=== PATIENT | male | born 1940 | race African-American/Black ===

== ENCOUNTER 2019-03-12 13:28 | Inpatient (IN) ==
[2019-03-12] MEDS ORDERED: GLUCAGON 1 MG VIAL IM PRN (15:16)
[2019-03-12] MEDS ORDERED: ACETAMINOPHEN 325 MG TABLET PO PRN (15:16)
[2019-03-12] MEDS ORDERED: DEXTROSE 10% 250 ML BAG IV PRN (15:16)
[2019-03-12] MEDS ORDERED: ALBUTEROL 2.5 MG/3 ML NEB RESP TX PRN (15:21)
[2019-03-12 15:30] LABS: Basophils % 0.1 % (0.0-0.8); Hematocrit 46.4 VOL% (42.0-52.0); Hemoglobin 15.1 GM/DL (14.0-18.0); Immature Granulocytes % 1.8 %; Immature Granulocytes Absolute 0.45 #; Lymphocytes # 0.8 10*3/uL (1.4-4.0); Lymphocytes % 3.4 % (21.2-54.2); Mean Corpuscular HGB Conc 32.5 GM/DL (32-36); Mean Corpuscular Volume 88.2 FL (87-102); Mean Platelet Volume 11.8 FL (9.6-12.0); Monocytes % 8.4 % (1.7-12.7); Neutrophils % 86.3 % (38.7-73.9); Platelet Count 277 T/CUMM (130-400); Red Blood Count 5.26 MC/CUMM (3.8-5.5); Red Cell Distribution Width 17.9 % (9.3-17.3); White Blood Count 24.4 T/CUMM (4-12)
[2019-03-12 15:49] LABS: Band Neutrophils 1 % (0-10); Lymphocytes 4 % (20-55); Segmented Neutrophils 87 % (50-85); Total Cells Counted 100
[2019-03-12 15:50] LABS: Platelet Estimate Adequate
[2019-03-12] MEDS ORDERED: SODIUM CHLORIDE 0.9% 100 ML IV ONE (16:28)
[2019-03-12 16:35] LABS: PT Patient Result 60.3 SECS (9.6-12.2); Partial Thromboplastin Time 79.7 SECS (20.8-36.0)
[2019-03-12 16:36] LABS: INR 5.6
[2019-03-12 17:03] LABS: Albumin 2.2 G/DL (3.4-5.0); Bilirubin,Total 1.8 MG/DL (0.2-1.0); Calcium 9.3 MG/DL (8.5-10.1); Osmolality,Calculated 294.7 MOS/KG (273-304); Risk Ratio 4.15; Thyroid Stimulating Hormone 1.48 uIU/ml (0.358-3.74); Total Protein 7.7 G/DL (6.4-8.3)
[2019-03-12] MEDS: cefTRIAXone 1,000 MG in SYRINGE 1 EACH IV SCH (17:04)
[2019-03-12] MEDS: INSULIN LISPRO 100 UNIT/ML SUBCUT SCH ×2 (17:04→20:58)
[2019-03-12] MEDS ORDERED: NITROGLYCERIN SL 0.4 MG TABLET SL PRN (17:11)
[2019-03-12] MEDS ORDERED: INFLUENZA VIRUS VACCINE 0.5 ML SYRINGE IM ONE (17:16)
[2019-03-12] MEDS: AZITHROMYCIN INJ 500 MG in SODIUM CHLORIDE 0.9% 250 ML IV SCH (17:30)
[2019-03-12] MEDS: ALBUTEROL/IPRATROPIUM 3 ML NEB RESP TX SCH (19:18)
[2019-03-12] MEDS: FERROUS GLUCONATE 240 MG TABLET PO SCH (20:57)
[2019-03-12] MEDS: FUROSEMIDE 20 MG TABLET PO SCH (20:57)
[2019-03-12] MEDS: AMITRIPTYLINE 50 MG TABLET PO SCH (20:57)
[2019-03-12] MEDS: BUDESONIDE/FORMOTEROL 80-4.5 INHALER 6.9 GM INH SCH (21:34)
[2019-03-13] MEDS: ALBUTEROL/IPRATROPIUM 3 ML NEB RESP TX SCH ×4 (00:48→19:20)
[2019-03-13 06:10] LABS: Basophils # 0.1 10*3/uL (0.0-0.2); Basophils % 0.2 % (0.0-0.8); Hematocrit 34.1 VOL% (42.0-52.0); Immature Granulocytes % 1.1 %; Immature Granulocytes Absolute 0.32 #; Lymphocytes # 0.6 10*3/uL (1.4-4.0); Mean Corpuscular HGB Conc 32.3 GM/DL (32-36); Mean Corpuscular Volume 88.3 FL (87-102); Mean Platelet Volume 11.8 FL (9.6-12.0); Monocytes % 9.1 % (1.7-12.7); Neutrophils % 87.6 % (38.7-73.9); Platelet Count 239 T/CUMM (130-400); Red Blood Count 3.86 MC/CUMM (3.8-5.5); Red Cell Distribution Width 17.2 % (9.3-17.3); White Blood Count 27.9 T/CUMM (4-12)
[2019-03-13 06:19] LABS: Calcium 9.5 MG/DL (8.5-10.1)
[2019-03-13 06:31] LABS: Hypochromasia 1+; Lymphocytes 4 % (20-55); Platelet Estimate Adequate; Segmented Neutrophils 91 % (50-85); Total Cells Counted 100
[2019-03-13] MEDS: INSULIN LISPRO 100 UNIT/ML SUBCUT SCH ×4 (08:37→21:25)
[2019-03-13] MEDS: ISOSORBIDE MONONITRATE 60 MG TABLET PO SCH (08:39)
[2019-03-13] MEDS: CLOPIDOGREL 75 MG TABLET PO SCH (08:39)
[2019-03-13] MEDS: FERROUS GLUCONATE 240 MG TABLET PO SCH ×2 (08:39→21:25)
[2019-03-13] MEDS: FUROSEMIDE 20 MG TABLET PO SCH ×2 (08:39→21:24)
[2019-03-13] MEDS: ATENOLOL 25 MG TABLET PO SCH (08:39)
[2019-03-13] MEDS: PANTOPRAZOLE 40 MG TABLET PO SCH (08:40)
[2019-03-13 08:43] LABS: Bilirubin,Direct 0.94 MG/DL (0.0-0.20); Bilirubin,Indirect 0.6 MG/DL (0.0-1.0); Bilirubin,Total 1.5 MG/DL (0.2-1.0); Total Protein 7.6 G/DL (6.4-8.3)
[2019-03-13] MEDS: BUDESONIDE/FORMOTEROL 80-4.5 INHALER 6.9 GM INH SCH ×2 (08:46→21:25)
[2019-03-13] MEDS ORDERED: hydroCHLOROthiazide 25 MG TABLET PO SCH (09:00)
[2019-03-13] MEDS: SODIUM CHLORIDE 0.45% 1,000 ML IV SCH (09:59)
[2019-03-13 10:10] LABS: PT Patient Result 73.6 SECS (9.6-12.2)
[2019-03-13 10:12] LABS: INR 6.9; Partial Thromboplastin Time 84.3 SECS (20.8-36.0)
[2019-03-13] MEDS ORDERED: PHYTONADIONE 5 MG/5 ML ORAL.SYR PO ONE (15:05)
[2019-03-13] MEDS: cefTRIAXone 1,000 MG in SYRINGE 1 EACH IV SCH (16:30)
[2019-03-13] MEDS: AZITHROMYCIN INJ 500 MG in SODIUM CHLORIDE 0.9% 250 ML IV SCH (16:36)
[2019-03-13] MEDS: PIPERACILLIN/TAZOBACTAM 3,375 MG in SODIUM CHLORIDE 0.9% 100 ML IV SCH (21:19)
[2019-03-13] MEDS: AMITRIPTYLINE 50 MG TABLET PO SCH (21:25)
[2019-03-14] MEDS: ALBUTEROL/IPRATROPIUM 3 ML NEB RESP TX SCH ×4 (01:01→20:52)
[2019-03-14] MEDS: PIPERACILLIN/TAZOBACTAM 3,375 MG in SODIUM CHLORIDE 0.9% 100 ML IV SCH ×2 (04:56→17:05)
[2019-03-14 06:01] LABS: Basophils # 0.1 10*3/uL (0.0-0.2); Basophils % 0.2 % (0.0-0.8); Hematocrit 34.1 VOL% (42.0-52.0); Hemoglobin 11.1 GM/DL (14.0-18.0); Immature Granulocytes % 3.8 %; Immature Granulocytes Absolute 1.23 #; Lymphocytes # 0.8 10*3/uL (1.4-4.0); Lymphocytes % 2.4 % (21.2-54.2); Mean Corpuscular HGB Conc 32.6 GM/DL (32-36); Mean Corpuscular Volume 88.1 FL (87-102); Mean Platelet Volume 11.2 FL (9.6-12.0); Monocytes % 5.8 % (1.7-12.7); Neutrophils % 87.8 % (38.7-73.9); Platelet Count 247 T/CUMM (130-400); Red Blood Count 3.87 MC/CUMM (3.8-5.5); Red Cell Distribution Width 16.9 % (9.3-17.3); White Blood Count 32.7 T/CUMM (4-12)
[2019-03-14 06:20] LABS: INR 4.3
[2019-03-14 06:21] LABS: Band Neutrophils 1 % (0-10); Lymphocytes 6 % (20-55); Segmented Neutrophils 84 % (50-85); Total Cells Counted 100
[2019-03-14 06:22] LABS: Anisocytosis 1+; Macrocytosis Slight; Platelet Estimate Normal
[2019-03-14 06:25] LABS: PT Patient Result 45.7 SECS (9.6-12.2)
[2019-03-14 06:35] LABS: Calcium 9.7 MG/DL (8.5-10.1); Osmolality,Calculated 295.5 MOS/KG (273-304)
[2019-03-14] MEDS: SODIUM CHLORIDE 0.45% 1,000 ML IV SCH (07:19)
[2019-03-14] MEDS: ISOSORBIDE MONONITRATE 60 MG TABLET PO SCH (08:34)
[2019-03-14] MEDS: PANTOPRAZOLE 40 MG TABLET PO SCH (08:35)
[2019-03-14] MEDS: CLOPIDOGREL 75 MG TABLET PO SCH (08:35)
[2019-03-14] MEDS: ATENOLOL 25 MG TABLET PO SCH (08:35)
[2019-03-14] MEDS ORDERED: AZITHROMYCIN 250 MG TABLET PO SCH (09:00)
[2019-03-14] MEDS: INSULIN LISPRO 100 UNIT/ML SUBCUT SCH ×4 (09:27→21:05)
[2019-03-14] MEDS ORDERED: CEFTAROLINE 200 MG in SODIUM CHLORIDE 0.9% 100 ML IV SCH (10:00)
[2019-03-14] MEDS: FERROUS GLUCONATE 240 MG TABLET PO SCH (10:45)
[2019-03-14 12:22] LABS: Creatinine,Urine Random 256 MG/DL; Total Protein,Urine Random 210 MG/DL; Urea Nitrogen, Urine Random 330 MG/DL
[2019-03-14 13:15] LABS: Apearance,Urine CLOUDY (Clear); Bilirubin,Urine Negative (Negative); Blood, Urine Moderate mg/dL (Negative); Glucose,Urine (UA) 50 mg/dL (Negative); Ketones,Urine Negative (Negative); Nitrite,Urine Negative (Negative); Protein,Urine 30 MG/DL; RBC,Urine 14 /HPF (0-4); Urine Color Amber (Yellow); Urine Specific Gravity 1.019 (1.001-1.035); Urine Urobilinogen < 2.0 EU/DL (0.2-1.0); WBC,Urine 22 /HPF (0-6)
[2019-03-14] MEDS: BUDESONIDE/FORMOTEROL 80-4.5 INHALER 6.9 GM INH SCH ×2 (15:22→21:05)
[2019-03-14] MEDS ORDERED: PHYTONADIONE 5 MG/5 ML ORAL.SYR PO ONE (15:25)
[2019-03-14 16:19] LABS: Amorphous Crystals,Urine Occasional /HPF (Few); Apearance,Urine CLOUDY (Clear); Bilirubin,Urine Negative (Negative); Blood, Urine Moderate mg/dL (Negative); Glucose,Urine (UA) 50 mg/dL (Negative); Ketones,Urine Negative (Negative); Nitrite,Urine Negative (Negative); Protein,Urine 30 MG/DL; Urine Color Amber (Yellow); Urine Urobilinogen < 2.0 EU/DL (0.2-1.0); WBC,Urine 2 /HPF (0-6)
[2019-03-14] MEDS: metroNIDAZOLE INJ 500 MG in PREMIX 1 EACH IV SCH ×2 (17:42→21:06)
[2019-03-14] MEDS: HEPARIN DRIP 25,000 UNITS/500 ML PREMIX IV SCH (18:20)
[2019-03-14] MEDS: SODIUM BICARB INJ 100 MEQ in STERILE WATER INJ 1,000 ML IV SCH (18:32)
[2019-03-14] MEDS ORDERED: SODIUM CHLORIDE 0.9% 500 ML IV ONE (18:41)
[2019-03-14] MEDS ORDERED: NOREPINEPHRINE 8 MG in SODIUM CHLORIDE 0.9% 242 ML IV PRN (19:31)
[2019-03-14] MEDS: ALBUMIN 25% 25 GM in PREMIX 1 EACH IV SCH ×2 (19:51→23:12)
[2019-03-14] MEDS: AMITRIPTYLINE 50 MG TABLET PO SCH (21:05)
[2019-03-15] MEDS: ALBUTEROL/IPRATROPIUM 3 ML NEB RESP TX SCH ×4 (00:47→20:08)
[2019-03-15] MEDS: SODIUM BICARB INJ 100 MEQ in STERILE WATER INJ 1,000 ML IV SCH ×2 (02:14→17:09)
[2019-03-15 02:18] LABS: Basophils % 0.2 % (0.0-0.8); Hematocrit 29.2 VOL% (42.0-52.0); Hemoglobin 9.6 GM/DL (14.0-18.0); Immature Granulocytes % 2.8 %; Immature Granulocytes Absolute 0.72 #; Lymphocytes # 0.5 10*3/uL (1.4-4.0); Lymphocytes % 1.8 % (21.2-54.2); Mean Corpuscular HGB Conc 32.9 GM/DL (32-36); Mean Corpuscular Volume 87.2 FL (87-102); Monocytes % 4.8 % (1.7-12.7); Neutrophils % 90.4 % (38.7-73.9); Platelet Count 253 T/CUMM (130-400); Red Blood Count 3.35 MC/CUMM (3.8-5.5); Red Cell Distribution Width 16.7 % (9.3-17.3); White Blood Count 25.5 T/CUMM (4-12)
[2019-03-15 02:39] LABS: Calcium 8.7 MG/DL (8.5-10.1); Osmolality,Calculated 299.5 MOS/KG (273-304)
[2019-03-15 02:44] LABS: Albumin 2.3 G/DL (3.4-5.0); Bilirubin,Direct 1.84 MG/DL (0.0-0.20); Bilirubin,Indirect 0.5 MG/DL (0.0-1.0); Bilirubin,Total 2.3 MG/DL (0.2-1.0)
[2019-03-15 03:02] LABS: Lymphocytes 2 % (20-55); Segmented Neutrophils 92 % (50-85); Total Cells Counted 100
[2019-03-15 03:03] LABS: Ovalocytes Few
[2019-03-15 03:04] LABS: Anisocytosis 1+; Platelet Estimate Normal; Target Cells Few
[2019-03-15] MEDS: SODIUM CHLORIDE 0.45% 1,000 ML IV SCH (03:24)
[2019-03-15] MEDS: metroNIDAZOLE INJ 500 MG in PREMIX 1 EACH IV SCH ×4 (03:26→21:11)
[2019-03-15 03:38] LABS: INR 3.2
[2019-03-15 03:40] LABS: PT Patient Result 34.6 SECS (9.6-12.2)
[2019-03-15] MEDS: ALBUMIN 25% 25 GM in PREMIX 1 EACH IV SCH ×3 (06:08→22:24)
[2019-03-15] MEDS: PIPERACILLIN/TAZOBACTAM 3,375 MG in SODIUM CHLORIDE 0.9% 100 ML IV SCH ×2 (06:09→19:01)
[2019-03-15] MEDS ORDERED: PHYTONADIONE INJ 2.5 MG in SODIUM CHLORIDE 0.9% 25 ML IV ONE (07:30)
[2019-03-15 08:17] LABS: INR 2.5
[2019-03-15 08:19] LABS: PT Patient Result 27.2 SECS (9.6-12.2)
[2019-03-15] MEDS ORDERED: SODIUM CHLORIDE 0.9% 1,000 ML IV ONE (08:54)
[2019-03-15] MEDS ORDERED: SODIUM CHLORIDE 0.45% 1,000 ML IV ONE (09:32)
[2019-03-15] MEDS: INSULIN LISPRO 100 UNIT/ML SUBCUT SCH ×4 (09:35→21:11)
[2019-03-15] MEDS: PANTOPRAZOLE 40 MG TABLET PO SCH (09:35)
[2019-03-15] MEDS ORDERED: PROTHROMBIN COMPLEX CONC 1,500 UNIT in IV BAG 1 EACH IV ONE (10:00)
[2019-03-15 12:09] LABS: INR 2.8
[2019-03-15 12:13] LABS: PT Patient Result 30.1 SECS (9.6-12.2); Partial Thromboplastin Time 82.1 SECS (20.8-36.0)
[2019-03-15] MEDS ORDERED: PROTHROMBIN COMPLEX IV ONE (12:31)
[2019-03-15 14:19] LABS: INR 1.2; PT Patient Result 13.3 SECS (9.6-12.2)
[2019-03-15] MEDS: HEPARIN DRIP 25,000 UNITS/500 ML PREMIX IV SCH (17:01)
[2019-03-15] MEDS: BUDESONIDE/FORMOTEROL 80-4.5 INHALER 6.9 GM INH SCH ×2 (19:00→21:11)
[2019-03-15] MEDS: AMITRIPTYLINE 50 MG TABLET PO SCH (21:11)
[2019-03-16] MEDS: ALBUTEROL/IPRATROPIUM 3 ML NEB RESP TX SCH ×4 (01:15→19:38)
[2019-03-16] MEDS: metroNIDAZOLE INJ 500 MG in PREMIX 1 EACH IV SCH ×4 (03:17→22:40)
[2019-03-16 04:13] LABS: Basophils % 0.2 % (0.0-0.8); Eosinophils % 0.1 % (0.00-10.9); Hematocrit 26.3 VOL% (42.0-52.0); Hemoglobin 8.7 GM/DL (14.0-18.0); Immature Granulocytes % 1.7 %; Immature Granulocytes Absolute 0.44 #; Lymphocytes # 0.4 10*3/uL (1.4-4.0); Lymphocytes % 1.4 % (21.2-54.2); Mean Corpuscular HGB Conc 33.1 GM/DL (32-36); Mean Corpuscular Volume 86.2 FL (87-102); Mean Platelet Volume 11.8 FL (9.6-12.0); Monocytes % 6.6 % (1.7-12.7); Platelet Count 248 T/CUMM (130-400); Red Blood Count 3.05 MC/CUMM (3.8-5.5); Red Cell Distribution Width 16.6 % (9.3-17.3); White Blood Count 25.5 T/CUMM (4-12)
[2019-03-16 04:26] LABS: Calcium 8.3 MG/DL (8.5-10.1); Osmolality,Calculated 299.4 MOS/KG (273-304)
[2019-03-16 04:37] LABS: INR 1.3; PT Patient Result 13.9 SECS (9.6-12.2)
[2019-03-16 04:52] LABS: Partial Thromboplastin Time 42.2 SECS (20.8-36.0)
[2019-03-16 05:26] LABS: Lymphocytes 3 % (20-55); Platelet Estimate Normal; Segmented Neutrophils 93 % (50-85); Total Cells Counted 100
[2019-03-16] MEDS: PIPERACILLIN/TAZOBACTAM 3,375 MG in SODIUM CHLORIDE 0.9% 100 ML IV SCH ×2 (05:49→20:00)
[2019-03-16] MEDS: SODIUM CHLORIDE 0.45% 1,000 ML IV SCH ×2 (05:50→19:30)
[2019-03-16] MEDS: ALBUMIN 25% 25 GM in PREMIX 1 EACH IV SCH ×2 (06:51→20:00)
[2019-03-16] MEDS ORDERED: SODIUM CHLORIDE 0.9% 1,000 ML IV PRN (08:15)
[2019-03-16] MEDS: INSULIN LISPRO 100 UNIT/ML SUBCUT SCH ×4 (09:03→22:33)
[2019-03-16] MEDS: BUDESONIDE/FORMOTEROL 80-4.5 INHALER 6.9 GM INH SCH ×2 (09:46→22:35)
[2019-03-16] MEDS: PANTOPRAZOLE 40 MG TABLET PO SCH (09:46)
[2019-03-16] MEDS: HEPARIN DRIP 25,000 UNITS/500 ML PREMIX IV SCH (09:47)
[2019-03-16] MEDS ORDERED: MAGNESIUM SULF RIDER 2 GM in PREMIX 1 EACH IV PRN (13:06)
[2019-03-16] MEDS ORDERED: MAGNESIUM SULF RIDER 4 GM in PREMIX 1 EACH IV PRN (13:06)
[2019-03-16 13:23] LABS: INR 1.4; PT Patient Result 14.8 SECS (9.6-12.2)
[2019-03-16 13:24] LABS: Partial Thromboplastin Time 78.3 SECS (20.8-36.0)
[2019-03-16 20:39] LABS: Hematocrit 32.4 VOL% (42.0-52.0)
[2019-03-16 20:42] LABS: Hemoglobin 10.9 GM/DL (14.0-18.0)
[2019-03-16] MEDS: AMITRIPTYLINE 50 MG TABLET PO SCH (22:35)
[2019-03-17] MEDS: ALBUTEROL/IPRATROPIUM 3 ML NEB RESP TX SCH ×4 (00:44→19:26)
[2019-03-17 02:46] LABS: Basophils % 0.2 % (0.0-0.8); Eosinophils # 0.1 10*3/uL (0.0-0.87); Eosinophils % 0.3 % (0.00-10.9); Hematocrit 28.9 VOL% (42.0-52.0); Hemoglobin 9.8 GM/DL (14.0-18.0); Immature Granulocytes % 3.5 %; Immature Granulocytes Absolute 0.72 #; Lymphocytes # 0.5 10*3/uL (1.4-4.0); Lymphocytes % 2.3 % (21.2-54.2); Mean Corpuscular HGB Conc 33.9 GM/DL (32-36); Mean Corpuscular Volume 83.5 FL (87-102); Mean Platelet Volume 10.2 FL (9.6-12.0); Monocytes % 6.9 % (1.7-12.7); Neutrophils % 86.8 % (38.7-73.9); Platelet Count 209 T/CUMM (130-400); Red Blood Count 3.46 MC/CUMM (3.8-5.5); Red Cell Distribution Width 16.1 % (9.3-17.3); White Blood Count 20.8 T/CUMM (4-12)
[2019-03-17 02:56] LABS: INR 1.4; PT Patient Result 14.7 SECS (9.6-12.2)
[2019-03-17 03:01] LABS: Partial Thromboplastin Time 75.2 SECS (20.8-36.0)
[2019-03-17 03:08] LABS: Anisocytosis 1+; Hypochromasia 1+; Lymphocytes 3 % (20-55); Microcytosis 1+; Platelet Estimate Adequate; Segmented Neutrophils 92 % (50-85); Total Cells Counted 100
[2019-03-17 03:11] LABS: Calcium 7.9 MG/DL (8.5-10.1); Osmolality,Calculated 302.5 MOS/KG (273-304)
[2019-03-17] MEDS: ALBUMIN 25% 25 GM in PREMIX 1 EACH IV SCH ×3 (05:00→23:00)
[2019-03-17] MEDS: metroNIDAZOLE INJ 500 MG in PREMIX 1 EACH IV SCH ×4 (06:00→22:11)
[2019-03-17] MEDS: INSULIN LISPRO 100 UNIT/ML SUBCUT SCH ×4 (09:23→21:16)
[2019-03-17] MEDS: PANTOPRAZOLE 40 MG TABLET PO SCH (10:17)
[2019-03-17] MEDS: PIPERACILLIN/TAZOBACTAM 3,375 MG in SODIUM CHLORIDE 0.9% 100 ML IV SCH ×2 (10:17→21:14)
[2019-03-17] MEDS: BUDESONIDE/FORMOTEROL 80-4.5 INHALER 6.9 GM INH SCH ×2 (10:18→21:17)
[2019-03-17] MEDS ORDERED: ALBUMIN 25% 25 GM in PREMIX 1 EACH IV SCH (14:00)
[2019-03-17 15:58] LABS: Hematocrit 31.5 VOL% (42.0-52.0); Hemoglobin 10.5 GM/DL (14.0-18.0)
[2019-03-17] MEDS: SODIUM CHLORIDE 0.45% 1,000 ML IV SCH (16:09)
[2019-03-17] MEDS: AMITRIPTYLINE 50 MG TABLET PO SCH (21:14)
[2019-03-17] MEDS: HEPARIN DRIP 25,000 UNITS/500 ML PREMIX IV SCH (21:31)
[2019-03-18] MEDS: ALBUTEROL/IPRATROPIUM 3 ML NEB RESP TX SCH ×4 (00:47→21:45)
[2019-03-18 05:15] LABS: INR 1.3; PT Patient Result 13.9 SECS (9.6-12.2)
[2019-03-18 05:39] LABS: Calcium 7.7 MG/DL (8.5-10.1); Osmolality,Calculated 306.7 MOS/KG (273-304)
[2019-03-18 05:51] LABS: Albumin 3.2 G/DL (3.4-5.0); Bilirubin,Direct 0.95 MG/DL (0.0-0.20); Bilirubin,Indirect 0.8 MG/DL (0.0-1.0); Bilirubin,Total 1.7 MG/DL (0.2-1.0); Total Protein 5.8 G/DL (6.4-8.3)
[2019-03-18] MEDS: metroNIDAZOLE INJ 500 MG in PREMIX 1 EACH IV SCH ×4 (05:51→21:34)
[2019-03-18 07:07] LABS: Basophils # 0.1 10*3/uL (0.0-0.2); Basophils % 0.3 % (0.0-0.8); Eosinophils % 0.2 % (0.00-10.9); Hematocrit 28.5 VOL% (42.0-52.0); Hemoglobin 9.6 GM/DL (14.0-18.0); Immature Granulocytes % 5.2 %; Immature Granulocytes Absolute 0.97 #; Lymphocytes # 0.5 10*3/uL (1.4-4.0); Lymphocytes % 2.6 % (21.2-54.2); Mean Corpuscular HGB Conc 33.7 GM/DL (32-36); Mean Corpuscular Volume 83.6 FL (87-102); Mean Platelet Volume 10.6 FL (9.6-12.0); Monocytes % 8.6 % (1.7-12.7); Neutrophils % 83.1 % (38.7-73.9); Platelet Count 219 T/CUMM (130-400); Red Blood Count 3.41 MC/CUMM (3.8-5.5); Red Cell Distribution Width 16.5 % (9.3-17.3); White Blood Count 18.8 T/CUMM (4-12)
[2019-03-18] MEDS: INSULIN LISPRO 100 UNIT/ML SUBCUT SCH ×4 (07:24→21:26)
[2019-03-18 07:29] LABS: Band Neutrophils 3 % (0-10); Lymphocytes 3 % (20-55); Nucleated Red Blood Cells 1 (0-5); Platelet Estimate Normal; Segmented Neutrophils 87 % (50-85); Total Cells Counted 100
[2019-03-18 07:30] LABS: Anisocytosis 3+; Polychromasia Slight
[2019-03-18 07:31] LABS: Giant Platelets Few; Hypochromasia Slight; Poikilocytosis Slight
[2019-03-18] MEDS: PIPERACILLIN/TAZOBACTAM 3,375 MG in SODIUM CHLORIDE 0.9% 100 ML IV SCH ×2 (07:36→21:25)
[2019-03-18] MEDS: BUDESONIDE/FORMOTEROL 80-4.5 INHALER 6.9 GM INH SCH ×2 (09:17→23:48)
[2019-03-18] MEDS: PANTOPRAZOLE 40 MG TABLET PO SCH (09:17)
[2019-03-18] MEDS: SODIUM CHLORIDE 0.45% 1,000 ML IV SCH (10:31)
[2019-03-18] MEDS: ATENOLOL 25 MG TABLET PO SCH (11:06)
[2019-03-18] MEDS: SODIUM BICARB INJ 100 MEQ in STERILE WATER INJ 1,000 ML IV SCH (11:06)
[2019-03-18] MEDS: HEPARIN DRIP 25,000 UNITS/500 ML PREMIX IV SCH (20:20)
[2019-03-18] MEDS: AMITRIPTYLINE 50 MG TABLET PO SCH (21:25)
[2019-03-19] MEDS: ALBUTEROL/IPRATROPIUM 3 ML NEB RESP TX SCH ×4 (00:48→20:42)
[2019-03-19] MEDS: SODIUM BICARB INJ 100 MEQ in STERILE WATER INJ 1,000 ML IV SCH ×2 (01:51→23:15)
[2019-03-19 04:37] LABS: Basophils # 0.1 10*3/uL (0.0-0.2); Basophils % 0.4 % (0.0-0.8); Eosinophils % 0.2 % (0.00-10.9); Hematocrit 28.4 VOL% (42.0-52.0); Hemoglobin 9.7 GM/DL (14.0-18.0); Immature Granulocytes % 7.6 %; Immature Granulocytes Absolute 1.37 #; Lymphocytes # 0.6 10*3/uL (1.4-4.0); Lymphocytes % 3.4 % (21.2-54.2); Mean Corpuscular HGB Conc 34.2 GM/DL (32-36); Mean Corpuscular Volume 82.1 FL (87-102); NRBC # 0.02 10*3/uL; Neutrophils % 78.4 % (38.7-73.9); Platelet Count 225 T/CUMM (130-400); Red Blood Count 3.46 MC/CUMM (3.8-5.5); Red Cell Distribution Width 16.3 % (9.3-17.3)
[2019-03-19 04:48] LABS: INR 1.4; PT Patient Result 14.7 SECS (9.6-12.2)
[2019-03-19 05:03] LABS: Band Neutrophils 1 % (0-10); Calcium 8.1 MG/DL (8.5-10.1); Eosinophils 1 % (0-10); Lymphocytes 4 % (20-55); Osmolality,Calculated 313.5 MOS/KG (273-304); Platelet Estimate Adequate; Segmented Neutrophils 87 % (50-85); Total Cells Counted 100
[2019-03-19 05:04] LABS: Hypochromasia Slight; Target Cells Few
[2019-03-19] MEDS: metroNIDAZOLE INJ 500 MG in PREMIX 1 EACH IV SCH ×2 (06:19→10:23)
[2019-03-19] MEDS: ATENOLOL 25 MG TABLET PO SCH (10:15)
[2019-03-19] MEDS: PANTOPRAZOLE 40 MG TABLET PO SCH (10:15)
[2019-03-19] MEDS: PIPERACILLIN/TAZOBACTAM 3,375 MG in SODIUM CHLORIDE 0.9% 100 ML IV SCH (10:16)
[2019-03-19] MEDS: INSULIN LISPRO 100 UNIT/ML SUBCUT SCH ×4 (10:25→20:50)
[2019-03-19] MEDS: BUDESONIDE/FORMOTEROL 80-4.5 INHALER 6.9 GM INH SCH ×2 (10:51→20:51)
[2019-03-19] MEDS: CIPROFLOXACIN 500 MG TABLET PO SCH (12:30)
[2019-03-19] MEDS: HEPARIN DRIP 25,000 UNITS/500 ML PREMIX IV SCH (16:10)
[2019-03-19] MEDS: AMITRIPTYLINE 50 MG TABLET PO SCH (20:50)
[2019-03-20] MEDS: ALBUTEROL/IPRATROPIUM 3 ML NEB RESP TX SCH ×4 (00:37→20:30)
[2019-03-20 03:56] LABS: Basophils # 0.1 10*3/uL (0.0-0.2); Basophils % 0.4 % (0.0-0.8); Eosinophils % 0.2 % (0.00-10.9); Hematocrit 28.8 VOL% (42.0-52.0); Hemoglobin 10.1 GM/DL (14.0-18.0); Immature Granulocytes % 7.6 %; Immature Granulocytes Absolute 1.43 #; Lymphocytes # 0.9 10*3/uL (1.4-4.0); Lymphocytes % 4.6 % (21.2-54.2); Mean Corpuscular HGB Conc 35.1 GM/DL (32-36); Mean Corpuscular Volume 79.6 FL (87-102); Mean Platelet Volume 10.9 FL (9.6-12.0); Monocytes % 10.3 % (1.7-12.7); NRBC # 0.02 10*3/uL; Neutrophils % 76.9 % (38.7-73.9); Platelet Count 229 T/CUMM (130-400); Red Blood Count 3.62 MC/CUMM (3.8-5.5); Red Cell Distribution Width 15.8 % (9.3-17.3); White Blood Count 18.9 T/CUMM (4-12)
[2019-03-20 04:18] LABS: Albumin 2.4 G/DL (3.4-5.0); Bilirubin,Total 1.6 MG/DL (0.2-1.0); Calcium 8.3 MG/DL (8.5-10.1); Osmolality,Calculated 318.2 MOS/KG (273-304); Total Protein 6.6 G/DL (6.4-8.3)
[2019-03-20 04:52] LABS: Band Neutrophils 1 % (0-10); Lymphocytes 8 % (20-55); Platelet Estimate Adequate; Segmented Neutrophils 81 % (50-85); Total Cells Counted 100
[2019-03-20 04:53] LABS: Hypochromasia 1+
[2019-03-20] MEDS: HEPARIN DRIP 25,000 UNITS/500 ML PREMIX IV SCH (05:14)
[2019-03-20] MEDS: INSULIN LISPRO 100 UNIT/ML SUBCUT SCH ×4 (07:48→21:46)
[2019-03-20] MEDS: PANTOPRAZOLE 40 MG TABLET PO SCH (09:13)
[2019-03-20] MEDS: ATENOLOL 25 MG TABLET PO SCH (09:13)
[2019-03-20] MEDS: ASPIRIN EC 81 MG TABLET PO SCH (09:13)
[2019-03-20] MEDS: CIPROFLOXACIN 500 MG TABLET PO SCH (09:13)
[2019-03-20] MEDS: BUDESONIDE/FORMOTEROL 80-4.5 INHALER 6.9 GM INH SCH ×2 (09:14→21:46)
[2019-03-20] MEDS: SODIUM BICARB INJ 100 MEQ in STERILE WATER INJ 1,000 ML IV SCH ×2 (14:44→21:50)
[2019-03-20 17:18] LABS: Creatinine,Urine Random 90 MG/DL; Total Protein,Urine Random 99 MG/DL; Urea Nitrogen, Urine Random 612 MG/DL
[2019-03-20] MEDS ORDERED: WARFARIN 4 MG TABLET PO SCH (18:00)
[2019-03-20] MEDS: AMITRIPTYLINE 50 MG TABLET PO SCH (21:46)
[2019-03-21] MEDS: ALBUTEROL/IPRATROPIUM 3 ML NEB RESP TX SCH ×4 (01:17→19:02)
[2019-03-21 06:16] LABS: Basophils # 0.1 10*3/uL (0.0-0.2); Basophils % 0.3 % (0.0-0.8); Eosinophils # 0.1 10*3/uL (0.0-0.87); Eosinophils % 0.3 % (0.00-10.9); Hematocrit 27.4 VOL% (42.0-52.0); Hemoglobin 9.4 GM/DL (14.0-18.0); Immature Granulocytes % 5.7 %; Immature Granulocytes Absolute 1.28 #; Lymphocytes % 4.4 % (21.2-54.2); Mean Corpuscular HGB Conc 34.3 GM/DL (32-36); Mean Corpuscular Volume 81.8 FL (87-102); Mean Platelet Volume 11.2 FL (9.6-12.0); Monocytes % 8.1 % (1.7-12.7); Neutrophils % 81.2 % (38.7-73.9); Platelet Count 223 T/CUMM (130-400); Red Blood Count 3.35 MC/CUMM (3.8-5.5); White Blood Count 22.6 T/CUMM (4-12)
[2019-03-21 06:29] LABS: INR 1.7; PT Patient Result 18.1 SECS (9.6-12.2)
[2019-03-21 06:42] LABS: Calcium 8.2 MG/DL (8.5-10.1); Osmolality,Calculated 318.5 MOS/KG (273-304)
[2019-03-21 06:48] LABS: Lymphocytes 7 % (20-55); Segmented Neutrophils 83 % (50-85); Total Cells Counted 100
[2019-03-21 06:49] LABS: Hypochromasia 1+; Platelet Estimate Normal; Target Cells Few
[2019-03-21] MEDS: ATENOLOL 25 MG TABLET PO SCH (07:30)
[2019-03-21] MEDS: INSULIN LISPRO 100 UNIT/ML SUBCUT SCH ×4 (07:48→21:54)
[2019-03-21] MEDS: HEPARIN DRIP 25,000 UNITS/500 ML PREMIX IV SCH ×2 (08:00→12:22)
[2019-03-21] MEDS ORDERED: HEPARIN 5,000 UNIT/1 ML VIAL ONE (08:11)
[2019-03-21] MEDS ORDERED: LIDOCAINE 1% 20 ML VIAL ONE (08:12)
[2019-03-21] MEDS ORDERED: BUPIVACAINE MPF 0.25% 30 ML VIAL ONE (08:12)
[2019-03-21] MEDS ORDERED: SODIUM CHLORIDE 0.9% 250 ML IV SCH (09:00)
[2019-03-21] MEDS ORDERED: LIDOCAINE 2% 5 ML VIAL ONE (09:58)
[2019-03-21] MEDS ORDERED: PROPOFOL 200 MG/20 ML VIAL IV ONE (09:58)
[2019-03-21] MEDS ORDERED: MIDAZOLAM 2 MG/2 ML VIAL ONE (09:59)
[2019-03-21] MEDS ORDERED: fentaNYL 100 MCG/2 ML VIAL ONE (09:59)
[2019-03-21 10:31] LABS: Hepatitis B Surface Ag Quant < 0.10 Index; Hepatitis B Surface Ag Result Negative (Negative)
[2019-03-21] MEDS: FAMOTIDINE 20 MG TABLET PO SCH (12:26)
[2019-03-21] MEDS: CIPROFLOXACIN 500 MG TABLET PO SCH (12:26)
[2019-03-21] MEDS: ASPIRIN EC 81 MG TABLET PO SCH (12:26)
[2019-03-21] MEDS: BUDESONIDE/FORMOTEROL 80-4.5 INHALER 6.9 GM INH SCH ×2 (12:27→21:54)
[2019-03-21] MEDS: SODIUM BICARB INJ 100 MEQ in STERILE WATER INJ 1,000 ML IV SCH (12:28)
[2019-03-21] MEDS ORDERED: HEPARIN 10,000 UNIT/10 ML VIAL IV SCH (16:30)
[2019-03-21] MEDS ORDERED: WARFARIN 1 MG TABLET PO SCH (18:00)
[2019-03-21] MEDS: glipiZIDE 5 MG TABLET PO SCH (18:39)
[2019-03-21 21:25] LABS: INR 1.7; PT Patient Result 18.1 SECS (9.6-12.2)
[2019-03-21 21:30] LABS: Partial Thromboplastin Time 77.7 SECS (20.8-36.0)
[2019-03-22] MEDS: AMITRIPTYLINE 50 MG TABLET PO SCH ×2 (01:57→20:59)
[2019-03-22] MEDS: SODIUM BICARB INJ 100 MEQ in STERILE WATER INJ 1,000 ML IV SCH (04:03)
[2019-03-22 04:57] LABS: Basophils % 0.2 % (0.0-0.8); Eosinophils # 0.1 10*3/uL (0.0-0.87); Eosinophils % 0.4 % (0.00-10.9); Hematocrit 25.5 VOL% (42.0-52.0); Hemoglobin 8.9 GM/DL (14.0-18.0); Immature Granulocytes % 4.2 %; Immature Granulocytes Absolute 0.78 #; Lymphocytes # 0.8 10*3/uL (1.4-4.0); Lymphocytes % 4.4 % (21.2-54.2); Mean Corpuscular HGB Conc 34.9 GM/DL (32-36); Mean Corpuscular Volume 81.7 FL (87-102); Mean Platelet Volume 10.7 FL (9.6-12.0); Monocytes % 8.1 % (1.7-12.7); Neutrophils % 82.7 % (38.7-73.9); Platelet Count 205 T/CUMM (130-400); Red Blood Count 3.12 MC/CUMM (3.8-5.5); Red Cell Distribution Width 16.4 % (9.3-17.3); White Blood Count 18.7 T/CUMM (4-12)
[2019-03-22 05:04] LABS: INR 1.6; PT Patient Result 17.8 SECS (9.6-12.2)
[2019-03-22 05:06] LABS: INR 1.7; PT Patient Result 18.1 SECS (9.6-12.2)
[2019-03-22 05:14] LABS: Partial Thromboplastin Time 58.8 SECS (20.8-36.0)
[2019-03-22 05:46] LABS: Eosinophils 2 % (0-10); Lymphocytes 6 % (20-55); Segmented Neutrophils 86 % (50-85); Total Cells Counted 100
[2019-03-22 05:47] LABS: Platelet Estimate Normal
[2019-03-22] MEDS: ALBUTEROL/IPRATROPIUM 3 ML NEB RESP TX SCH ×4 (07:00→19:33)
[2019-03-22] MEDS: INSULIN LISPRO 100 UNIT/ML SUBCUT SCH ×4 (08:21→20:59)
[2019-03-22] MEDS: glipiZIDE 5 MG TABLET PO SCH ×2 (10:36→17:25)
[2019-03-22] MEDS: ATENOLOL 25 MG TABLET PO SCH (10:38)
[2019-03-22 12:29] LABS: INR 1.5; PT Patient Result 16.7 SECS (9.6-12.2)
[2019-03-22 12:36] LABS: Partial Thromboplastin Time 50.2 SECS (20.8-36.0)
[2019-03-22] MEDS: ASPIRIN EC 81 MG TABLET PO SCH (17:19)
[2019-03-22] MEDS: CIPROFLOXACIN 500 MG TABLET PO SCH (17:20)
[2019-03-22] MEDS: BUDESONIDE/FORMOTEROL 80-4.5 INHALER 6.9 GM INH SCH ×2 (17:20→21:00)
[2019-03-22] MEDS: FAMOTIDINE 20 MG TABLET PO SCH (17:20)
[2019-03-22] MEDS ORDERED: WARFARIN 2.5 MG TABLET PO ONE (20:00)
[2019-03-22 20:20] LABS: INR 1.5; PT Patient Result 15.7 SECS (9.6-12.2)
[2019-03-22 20:24] LABS: Partial Thromboplastin Time 50.3 SECS (20.8-36.0)
[2019-03-23] MEDS: ALBUTEROL/IPRATROPIUM 3 ML NEB RESP TX SCH ×4 (01:40→20:23)
[2019-03-23 03:25] LABS: Basophils % 0.2 % (0.0-0.8); Eosinophils # 0.1 10*3/uL (0.0-0.87); Eosinophils % 0.3 % (0.00-10.9); Hematocrit 26.4 VOL% (42.0-52.0); Hemoglobin 9.1 GM/DL (14.0-18.0); Immature Granulocytes % 2.8 %; Immature Granulocytes Absolute 0.58 #; Lymphocytes % 4.7 % (21.2-54.2); Mean Corpuscular HGB Conc 34.5 GM/DL (32-36); Mean Corpuscular Volume 83.5 FL (87-102); Mean Platelet Volume 11.1 FL (9.6-12.0); Platelet Count 199 T/CUMM (130-400); Red Blood Count 3.16 MC/CUMM (3.8-5.5); Red Cell Distribution Width 16.5 % (9.3-17.3); White Blood Count 20.5 T/CUMM (4-12)
[2019-03-23 03:37] LABS: INR 1.4; PT Patient Result 15.2 SECS (9.6-12.2)
[2019-03-23 03:48] LABS: Partial Thromboplastin Time 51.4 SECS (20.8-36.0)
[2019-03-23 04:07] LABS: Eosinophils 1 % (0-10); Lymphocytes 6 % (20-55); Segmented Neutrophils 88 % (50-85); Total Cells Counted 100
[2019-03-23 04:08] LABS: Hypochromasia 1+; Platelet Estimate Normal; Polychromasia Few; Target Cells Few
[2019-03-23] MEDS: HEPARIN DRIP 25,000 UNITS/500 ML PREMIX IV SCH ×3 (07:43→19:58)
[2019-03-23] MEDS: INSULIN LISPRO 100 UNIT/ML SUBCUT SCH ×4 (09:07→21:13)
[2019-03-23] MEDS: glipiZIDE 5 MG TABLET PO SCH (09:08)
[2019-03-23] MEDS: FAMOTIDINE 20 MG TABLET PO SCH (09:08)
[2019-03-23] MEDS: ATENOLOL 25 MG TABLET PO SCH (09:09)
[2019-03-23] MEDS: ASPIRIN EC 81 MG TABLET PO SCH (09:09)
[2019-03-23] MEDS: CIPROFLOXACIN 500 MG TABLET PO SCH (09:09)
[2019-03-23] MEDS: BUDESONIDE/FORMOTEROL 80-4.5 INHALER 6.9 GM INH SCH ×2 (09:21→21:13)
[2019-03-23 09:38] LABS: INR 1.4; PT Patient Result 14.9 SECS (9.6-12.2)
[2019-03-23 09:46] LABS: Partial Thromboplastin Time 53.8 SECS (20.8-36.0)
[2019-03-23] MEDS: WARFARIN 2.5 MG TABLET PO SCH (17:13)
[2019-03-23] MEDS: AMITRIPTYLINE 50 MG TABLET PO SCH (21:13)
[2019-03-23 23:41] LABS: INR 1.3
[2019-03-23 23:44] LABS: Partial Thromboplastin Time 67.5 SECS (20.8-36.0)
[2019-03-24] MEDS: ALBUTEROL/IPRATROPIUM 3 ML NEB RESP TX SCH ×4 (00:11→19:16)
[2019-03-24 05:43] LABS: Basophils # 0.1 10*3/uL (0.0-0.2); Basophils % 0.3 % (0.0-0.8); Eosinophils # 0.1 10*3/uL (0.0-0.87); Eosinophils % 0.6 % (0.00-10.9); Hematocrit 26.5 VOL% (42.0-52.0); Hemoglobin 8.7 GM/DL (14.0-18.0); Immature Granulocytes % 2.1 %; Lymphocytes % 5.2 % (21.2-54.2); Mean Corpuscular HGB Conc 32.8 GM/DL (32-36); Mean Corpuscular Volume 84.7 FL (87-102); Mean Platelet Volume 11.2 FL (9.6-12.0); Monocytes % 7.1 % (1.7-12.7); Neutrophils % 84.7 % (38.7-73.9); Platelet Count 196 T/CUMM (130-400); Red Blood Count 3.13 MC/CUMM (3.8-5.5); White Blood Count 19.3 T/CUMM (4-12)
[2019-03-24 05:48] LABS: INR 1.3; PT Patient Result 13.8 SECS (9.6-12.2)
[2019-03-24 06:04] LABS: Calcium 8.4 MG/DL (8.5-10.1); Osmolality,Calculated 303.3 MOS/KG (273-304)
[2019-03-24 06:24] LABS: Partial Thromboplastin Time 69.9 SECS (20.8-36.0)
[2019-03-24] MEDS: INSULIN LISPRO 100 UNIT/ML SUBCUT SCH ×4 (08:27→21:47)
[2019-03-24] MEDS: ATENOLOL 25 MG TABLET PO SCH (08:28)
[2019-03-24] MEDS: FAMOTIDINE 20 MG TABLET PO SCH (08:28)
[2019-03-24] MEDS: CIPROFLOXACIN 500 MG TABLET PO SCH (08:28)
[2019-03-24] MEDS: ASPIRIN EC 81 MG TABLET PO SCH (08:29)
[2019-03-24] MEDS: BUDESONIDE/FORMOTEROL 80-4.5 INHALER 6.9 GM INH SCH ×2 (08:29→21:46)
[2019-03-24] MEDS: HEPARIN DRIP 25,000 UNITS/500 ML PREMIX IV SCH (09:30)
[2019-03-24] MEDS ORDERED: WARFARIN 5 MG TABLET PO ONE (13:00)
[2019-03-24] MEDS: MEROPENEM 500 MG in SODIUM CHLORIDE 0.9% 100 ML IV SCH ×2 (14:36→21:47)
[2019-03-24] MEDS: VANCOMYCIN INJ 1,500 MG in SODIUM CHLORIDE 0.9% 500 ML IV SCH (15:10)
[2019-03-24] MEDS: WARFARIN 2.5 MG TABLET PO SCH (17:36)
[2019-03-24] MEDS: AMITRIPTYLINE 50 MG TABLET PO SCH (21:45)
[2019-03-25] MEDS: ALBUTEROL/IPRATROPIUM 3 ML NEB RESP TX SCH ×4 (00:29→19:31)
[2019-03-25] MEDS: MEROPENEM 500 MG in SODIUM CHLORIDE 0.9% 100 ML IV SCH ×3 (05:51→23:02)
[2019-03-25 06:09] LABS: Basophils # 0.1 10*3/uL (0.0-0.2); Basophils % 0.3 % (0.0-0.8); Eosinophils # 0.1 10*3/uL (0.0-0.87); Eosinophils % 0.6 % (0.00-10.9); Hematocrit 27.7 VOL% (42.0-52.0); Hemoglobin 8.8 GM/DL (14.0-18.0); Immature Granulocytes % 1.4 %; Immature Granulocytes Absolute 0.25 #; Lymphocytes # 0.8 10*3/uL (1.4-4.0); Lymphocytes % 4.4 % (21.2-54.2); Mean Corpuscular HGB Conc 31.8 GM/DL (32-36); Mean Corpuscular Volume 87.1 FL (87-102); Mean Platelet Volume 11.4 FL (9.6-12.0); Monocytes % 6.4 % (1.7-12.7); Neutrophils % 86.9 % (38.7-73.9); Platelet Count 188 T/CUMM (130-400); Red Blood Count 3.18 MC/CUMM (3.8-5.5); White Blood Count 17.9 T/CUMM (4-12)
[2019-03-25 06:29] LABS: Calcium 8.6 MG/DL (8.5-10.1); Osmolality,Calculated 296.1 MOS/KG (273-304)
[2019-03-25 06:30] LABS: INR 1.3; PT Patient Result 13.8 SECS (9.6-12.2)
[2019-03-25 06:32] LABS: Bilirubin,Direct 0.4 MG/DL (0.0-0.20); Bilirubin,Indirect 0.9 MG/DL (0.0-1.0); Bilirubin,Total 1.3 MG/DL (0.2-1.0); Total Protein 6.5 G/DL (6.4-8.3)
[2019-03-25 06:39] LABS: Lymphocytes 3 % (20-55); Segmented Neutrophils 92 % (50-85); Total Cells Counted 100
[2019-03-25 06:40] LABS: Platelet Estimate Normal; Polychromasia Few
[2019-03-25] MEDS ORDERED: POTASSIUM CHLORIDE 20 MEQ TABLET PO ONE (08:24)
[2019-03-25] MEDS: INSULIN LISPRO 100 UNIT/ML SUBCUT SCH ×4 (08:26→21:34)
[2019-03-25] MEDS: FAMOTIDINE 20 MG TABLET PO SCH (08:27)
[2019-03-25] MEDS: ASPIRIN EC 81 MG TABLET PO SCH (08:27)
[2019-03-25] MEDS: ATENOLOL 25 MG TABLET PO SCH (08:27)
[2019-03-25] MEDS: HEPARIN DRIP 25,000 UNITS/500 ML PREMIX IV SCH (08:28)
[2019-03-25] MEDS: BUDESONIDE/FORMOTEROL 80-4.5 INHALER 6.9 GM INH SCH ×2 (08:29→21:34)
[2019-03-25] MEDS ORDERED: WARFARIN 5 MG TABLET PO ONE (09:39)
[2019-03-25] MEDS ORDERED: TUBERCULIN SKIN TEST 0.1 ML SYRINGE INTRADERM ONE (13:38)
[2019-03-25] MEDS: WARFARIN 2.5 MG TABLET PO SCH (17:35)
[2019-03-25] MEDS: VANCOMYCIN INJ 1,500 MG in SODIUM CHLORIDE 0.9% 500 ML IV SCH (18:34)
[2019-03-25] MEDS: AMITRIPTYLINE 50 MG TABLET PO SCH (21:33)
[2019-03-26] MEDS: ALBUTEROL/IPRATROPIUM 3 ML NEB RESP TX SCH ×4 (01:13→20:00)
[2019-03-26] MEDS: MEROPENEM 500 MG in SODIUM CHLORIDE 0.9% 100 ML IV SCH ×3 (05:02→21:53)
[2019-03-26 05:56] LABS: Basophils % 0.3 % (0.0-0.8); Eosinophils # 0.1 10*3/uL (0.0-0.87); Eosinophils % 0.9 % (0.00-10.9); Hematocrit 25.8 VOL% (42.0-52.0); Hemoglobin 8.3 GM/DL (14.0-18.0); Immature Granulocytes Absolute 0.14 #; Lymphocytes # 0.7 10*3/uL (1.4-4.0); Lymphocytes % 5.1 % (21.2-54.2); Mean Corpuscular HGB Conc 32.2 GM/DL (32-36); Mean Corpuscular Volume 87.5 FL (87-102); Mean Platelet Volume 11.6 FL (9.6-12.0); Monocytes % 6.7 % (1.7-12.7); Platelet Count 178 T/CUMM (130-400); Red Blood Count 2.95 MC/CUMM (3.8-5.5); Red Cell Distribution Width 17.1 % (9.3-17.3); White Blood Count 13.6 T/CUMM (4-12)
[2019-03-26 06:07] LABS: Calcium 8.4 MG/DL (8.5-10.1); Osmolality,Calculated 297.3 MOS/KG (273-304)
[2019-03-26 06:37] LABS: INR 1.5; PT Patient Result 16.5 SECS (9.6-12.2)
[2019-03-26 06:42] LABS: Hypochromasia 1+; Microcytosis 1+; Target Cells Few
[2019-03-26 06:43] LABS: Platelet Estimate Adequate
[2019-03-26] MEDS ORDERED: WARFARIN 5 MG TABLET PO ONE (07:53)
[2019-03-26] MEDS ORDERED: POTASSIUM CHLORIDE 20 MEQ TABLET PO ONE (08:22)
[2019-03-26] MEDS: ATENOLOL 25 MG TABLET PO SCH (09:21)
[2019-03-26] MEDS: FAMOTIDINE 20 MG TABLET PO SCH (09:22)
[2019-03-26] MEDS: ASPIRIN EC 81 MG TABLET PO SCH (09:22)
[2019-03-26] MEDS: BUDESONIDE/FORMOTEROL 80-4.5 INHALER 6.9 GM INH SCH ×2 (09:23→21:55)
[2019-03-26] MEDS: INSULIN LISPRO 100 UNIT/ML SUBCUT SCH ×4 (10:38→21:55)
[2019-03-26] MEDS: HEPARIN DRIP 25,000 UNITS/500 ML PREMIX IV SCH ×2 (10:39→21:54)
[2019-03-26] MEDS: WARFARIN 2.5 MG TABLET PO SCH (17:01)
[2019-03-26] MEDS: AMITRIPTYLINE 50 MG TABLET PO SCH (21:53)
[2019-03-27] MEDS: ALBUTEROL/IPRATROPIUM 3 ML NEB RESP TX SCH ×3 (00:58→12:28)
[2019-03-27 05:48] LABS: Basophils # 0.1 10*3/uL (0.0-0.2); Basophils % 0.6 % (0.0-0.8); Eosinophils # 0.1 10*3/uL (0.0-0.87); Eosinophils % 1.1 % (0.00-10.9); Hemoglobin 8.5 GM/DL (14.0-18.0); Immature Granulocytes Absolute 0.09 #; Lymphocytes # 0.7 10*3/uL (1.4-4.0); Lymphocytes % 7.5 % (21.2-54.2); Mean Corpuscular HGB Conc 31.5 GM/DL (32-36); Mean Corpuscular Volume 87.9 FL (87-102); Mean Platelet Volume 11.9 FL (9.6-12.0); Monocytes % 8.9 % (1.7-12.7); Neutrophils % 80.9 % (38.7-73.9); Platelet Count 174 T/CUMM (130-400); Red Blood Count 3.07 MC/CUMM (3.8-5.5); Red Cell Distribution Width 16.8 % (9.3-17.3); White Blood Count 8.8 T/CUMM (4-12)
[2019-03-27 06:02] LABS: Calcium 8.4 MG/DL (8.5-10.1); Osmolality,Calculated 290.3 MOS/KG (273-304)
[2019-03-27 06:03] LABS: INR 1.6; PT Patient Result 17.6 SECS (9.6-12.2)
[2019-03-27] MEDS: MEROPENEM 500 MG in SODIUM CHLORIDE 0.9% 100 ML IV SCH ×2 (07:00→14:36)
[2019-03-27] MEDS: INSULIN LISPRO 100 UNIT/ML SUBCUT SCH ×3 (08:13→16:27)
[2019-03-27] MEDS ORDERED: WARFARIN 5 MG TABLET PO ONE (08:25)
[2019-03-27] MEDS ORDERED: POTASSIUM CHLORIDE 20 MEQ TABLET PO ONE ×2 (09:25)
[2019-03-27] MEDS: HEPARIN DRIP 25,000 UNITS/500 ML PREMIX IV SCH (10:13)
[2019-03-27] MEDS: ASPIRIN EC 81 MG TABLET PO SCH (10:14)
[2019-03-27] MEDS: BUDESONIDE/FORMOTEROL 80-4.5 INHALER 6.9 GM INH SCH (10:14)
[2019-03-27] MEDS: FAMOTIDINE 20 MG TABLET PO SCH (10:14)
[2019-03-27] MEDS: ATENOLOL 25 MG TABLET PO SCH (10:14)
[2019-03-27] MEDS ORDERED: ENOXAPARIN 100 MG/ML SYRINGE SUBCUT ONE (11:12)
[2019-03-27] MEDS ORDERED: INFLUENZA VIRUS VACCINE 0.5 ML SYRINGE IM ONE (14:22)
[2019-03-27 16:15] VITALS: BP 121/48
[2019-03-27] MEDS ORDERED: WARFARIN 4 MG TABLET PO SCH (18:00)
[2019-03-28] MEDS ORDERED: WARFARIN 2 MG TABLET PO SCH (18:00)
== END 2019-03-27 17:52 | disposition swing bed (61) | DRG 871 ==
LOC: N.ED 13:28 → N.EDINP 15:16 → SUATTDRO 15:16 → N.TELEN 15:52 → N.CC 03-14 19:35 → N.3E 03-19 15:17
PROVIDERS: ADMIT Hospitalist; ATTEND Internal Medicine

== ENCOUNTER 2019-04-11 20:24 | Inpatient (IN) ==
[2019-04-11 21:04] LABS: Basophils # 0.1 10*3/uL (0.0-0.2); Basophils % 0.6 % (0.0-0.8); Eosinophils # 0.2 10*3/uL (0.0-0.87); Eosinophils % 1.4 % (0.00-10.9); Hematocrit 21.6 VOL% (42.0-52.0); Hemoglobin 6.7 GM/DL (14.0-18.0); Immature Granulocytes % 0.5 %; Immature Granulocytes Absolute 0.06 #; Lymphocytes # 1.8 10*3/uL (1.4-4.0); Lymphocytes % 16.1 % (21.2-54.2); Mean Corpuscular Volume 87.4 FL (87-102); Mean Platelet Volume 9.8 FL (9.6-12.0); Monocytes % 9.5 % (1.7-12.7); Neutrophils % 71.9 % (38.7-73.9); Platelet Count 165 T/CUMM (130-400); Red Blood Count 2.47 MC/CUMM (3.8-5.5); Red Cell Distribution Width 15.7 % (9.3-17.3); White Blood Count 11.2 T/CUMM (4-12)
[2019-04-11 21:22] LABS: PT Patient Result 109.7 SECS (9.6-12.2)
[2019-04-11 21:24] LABS: INR 10.3
[2019-04-11 21:29] LABS: Albumin 1.9 G/DL (3.4-5.0); Bilirubin,Total 0.6 MG/DL (0.2-1.0); Osmolality,Calculated 282.8 MOS/KG (273-304); Total Protein 6.3 G/DL (6.4-8.3)
[2019-04-11] MEDS ORDERED: POTASSIUM CHLORIDE 20 MEQ/15 ML UDCUP PO ONE (22:24)
[2019-04-12] MEDS ORDERED: ACETAMINOPHEN 325 MG TABLET PO PRN (01:09)
[2019-04-12] MEDS ORDERED: ONDANSETRON 4 MG/2 ML VIAL IV PRN (01:09)
[2019-04-12] MEDS ORDERED: DOCUSATE SODIUM 100 MG CAPSULE PO PRN (01:09)
[2019-04-12] MEDS ORDERED: GLUCAGON 1 MG VIAL IM PRN (01:09)
[2019-04-12] MEDS ORDERED: DEXTROSE 50% 25 GM/50 ML VIAL IV PRN (01:09)
[2019-04-12] MEDS ORDERED: SODIUM CHLORIDE 0.9% 1,000 ML IV PRN (01:12)
[2019-04-12] MEDS ORDERED: NITROGLYCERIN SL 0.4 MG TABLET SL PRN (01:14)
[2019-04-12] MEDS: INSULIN REGULAR 100 UNIT/ML SUBCUT SCH ×5 (02:20→20:47)
[2019-04-12 04:33] LABS: Basophils # 0.1 10*3/uL (0.0-0.2); Basophils % 0.6 % (0.0-0.8); Eosinophils # 0.2 10*3/uL (0.0-0.87); Hematocrit 22.1 VOL% (42.0-52.0); Hemoglobin 6.7 GM/DL (14.0-18.0); Immature Granulocytes % 0.4 %; Immature Granulocytes Absolute 0.04 #; Lymphocytes # 1.5 10*3/uL (1.4-4.0); Lymphocytes % 15.6 % (21.2-54.2); Mean Corpuscular HGB Conc 30.3 GM/DL (32-36); Mean Corpuscular Volume 88.4 FL (87-102); Mean Platelet Volume 10.9 FL (9.6-12.0); Neutrophils % 72.4 % (38.7-73.9); Platelet Count 173 T/CUMM (130-400); Red Cell Distribution Width 15.8 % (9.3-17.3); White Blood Count 9.6 T/CUMM (4-12)
[2019-04-12 05:02] LABS: Calcium 7.9 MG/DL (8.5-10.1); Osmolality,Calculated 285.7 MOS/KG (273-304)
[2019-04-12 05:24] LABS: PT Patient Result 101.6 SECS (9.6-12.2)
[2019-04-12 05:26] LABS: INR 9.5
[2019-04-12] MEDS: ALBUTEROL/IPRATROPIUM 3 ML NEB RESP TX SCH ×3 (07:10→19:45)
[2019-04-12] MEDS: ATENOLOL 25 MG TABLET PO SCH (08:48)
[2019-04-12] MEDS: LISINOPRIL 2.5 MG TABLET PO SCH (08:48)
[2019-04-12] MEDS: ISOSORBIDE MONONITRATE 60 MG TABLET PO SCH (08:48)
[2019-04-12] MEDS ORDERED: PHYTONADIONE 10 MG/1 ML AMP SUBCUT ONE (09:38)
[2019-04-12] MEDS: BUDESONIDE/FORMOTEROL 80-4.5 INHALER 6.9 GM INH SCH ×2 (11:49→20:48)
[2019-04-12] MEDS ORDERED: EPOETIN ALFA 10,000 UNIT/1 ML VIAL IV PRN (12:53)
[2019-04-12] MEDS ORDERED: ZINC OXIDE PASTE 113 GM TUBE TOP PRN (20:41)
[2019-04-12] MEDS ORDERED: ATORVASTATIN 40 MG TABLET PO SCH (21:00)
[2019-04-13] MEDS: ALBUTEROL/IPRATROPIUM 3 ML NEB RESP TX SCH ×2 (00:35→07:03)
[2019-04-13 06:19] LABS: Basophils % 0.3 % (0.0-0.8); Eosinophils # 0.2 10*3/uL (0.0-0.87); Eosinophils % 1.9 % (0.00-10.9); Hematocrit 27.2 VOL% (42.0-52.0); Hemoglobin 8.5 GM/DL (14.0-18.0); Immature Granulocytes % 0.6 %; Immature Granulocytes Absolute 0.06 #; Lymphocytes # 1.7 10*3/uL (1.4-4.0); Lymphocytes % 17.5 % (21.2-54.2); Mean Corpuscular HGB Conc 31.3 GM/DL (32-36); Mean Platelet Volume 10.6 FL (9.6-12.0); Monocytes % 8.8 % (1.7-12.7); Neutrophils % 70.9 % (38.7-73.9); Platelet Count 165 T/CUMM (130-400); Red Cell Distribution Width 16.8 % (9.3-17.3); White Blood Count 9.8 T/CUMM (4-12)
[2019-04-13 06:30] LABS: INR 4.4
[2019-04-13 06:36] LABS: PT Patient Result 47.2 SECS (9.6-12.2)
[2019-04-13 06:45] LABS: Calcium 7.4 MG/DL (8.5-10.1); Osmolality,Calculated 282.3 MOS/KG (273-304)
[2019-04-13] MEDS: INSULIN REGULAR 100 UNIT/ML SUBCUT SCH (07:15)
[2019-04-13 07:49] VITALS: BP 130/56
[2019-04-13] MEDS: LISINOPRIL 2.5 MG TABLET PO SCH (08:59)
[2019-04-13] MEDS: ATENOLOL 25 MG TABLET PO SCH (08:59)
[2019-04-13] MEDS ORDERED: POTASSIUM CHLORIDE 20 MEQ TABLET PO SCH (09:00)
[2019-04-13] MEDS: ISOSORBIDE MONONITRATE 60 MG TABLET PO SCH (09:00)
[2019-04-13] MEDS: BUDESONIDE/FORMOTEROL 80-4.5 INHALER 6.9 GM INH SCH (09:12)
== END 2019-04-13 11:26 | DRG 947 ==
LOC: EDBD → EDUNIT# → N.ED 20:24 → N.EDINP 04-12 00:19 → N.2W 04-12 01:11 → N.2E 04-12 01:59
PROVIDERS: ADMIT Internal Medicine; ATTEND Internal Medicine